=== PATIENT | female | born 1980 | race Caucasian/White ===

== ENCOUNTER 2024-12-12 13:33 | Emergency (ER) | payer MEDICAID ==
[~2024-12-12] VITALS: Ht 165.1 cm; Wt 64.0 kg
[2024-12-12 13:38] VITALS: O2SAT 100
[2024-12-12] MEDS ORDERED: LORAZEPAM 2MG/ML INJ IV ONE ×2 (15:00→15:30)
[2024-12-12] MEDS: LORAZEPAM 2MG/ML INJ IV ONE (15:26)
[2024-12-12] MEDS: SODIUM CHLORIDE 0.9% 1,000 ML IV ONE (15:26)
[2024-12-12 15:51] LABS: BASOPHILS % 0.3 % (0.0-2.0); EOSINOPHILS % 0.7 % (0.0-5.0); HEMATOCRIT. 39.1 % (36.0-48.0); LYMPHOCYTES % 18.3 % (20.0-50.0); MEAN CORPUSCULAR HEMOGLOBIN 28.4 pg (28.0-32.0); MEAN CORPUSCULAR HGB CONC 33.3 g/dL (31.0-37.0); MEAN CORPUSCULAR VOLUME 85.3 fL (81.0-99.0); MEAN PLATELET VOLUME 9.6 fl (7.4-10.4); MONOCYTES % 7.9 % (2.0-8.0); NEUTROPHILS % 72.8 % (40.0-76.0); PLATELET 276 x1000/uL (130-400); RED BLOOD CELL COUNT 4.58 mill/uL (4.2-5.4); RED CELL DISTRIBUTION WIDTH 15.4 % (11.6-14.6); WHITE BLOOD COUNT 10.6 x1000/uL (4.5-11.0)
[2024-12-12 15:59] LABS: CHLORIDE 108 mEq/L (98-107); POTASSIUM 3.5 mEq/L (3.5-5.1); SODIUM 142 mEq/L (136-145)
[2024-12-12 16:00] LABS: CARBON DIOXIDE 25 mEq/L (21-32)
[2024-12-12 16:01] LABS: CALCIUM 9.5 mg/dL (8.7-10.4)
[2024-12-12 16:04] LABS: HCG SCREEN NEGATIVE
[2024-12-12 16:05] LABS: CREATININE 0.7 mg/dL (0.6-1.0); GLUCOSE 92 mg/dL (70-105)
[2024-12-12 16:06] LABS: UREA NITROGEN BLOOD 7 mg/dL (9-23)
[2024-12-12] MEDS ORDERED: CYCL10TA21 MT (18:19)
[2024-12-12 18:40] VITALS: BP 112/66; PULSE 80; RESP 16; TEMP 36.9; O2SAT 100
== END 2024-12-12 18:52 | disposition home or self-care (01) ==
LOC: ER 13:33
DX: M62.838 Other muscle spasm (principal); F44.4 Conversion disorder with motor symptom or deficit
CPT/HCPCS: 99283; 96374; 96361; 80048; 82962; 84703; 85025; 36415; J2060